=== PATIENT | female | born 1950 | race Caucasian/White ===

== ENCOUNTER → 2022-06-30 | Outpatient (CLI) | payer OTHER, MEDICARE ==
--- NOTE | 2022-06-30 12:44 | CT ---
EXAMINATION TYPE: CT chest wo con DATE OF EXAM: 06/30/2022 COMPARISON: CT April 14, [address] September 09, 2014 HISTORY: difficulty breathing x [address] DLP: 416 mGycm. Automated Exposure Control for Dose Reduction was Utilized. TECHNIQUE: CT scan of the thorax is performed without IV contrast. FINDINGS: LUNGS: Moderate emphysematous change with moderate biapical pleural/parenchymal scarring is redemonst rated. Persistent mild to moderate bibasilar linear scarring and/or atelectasis. Stable 7 mm peripher al right lower lobe nodule axial image 34. New 3 mm peripheral right lower lobe nodule axial image 36 . No pleural effusion or pneumothorax seen bilaterally. MEDIASTINUM: Lack of IV contrast is noted to limit evaluation for mediastinal and especially hilar a denopathy. There are no definitive greater than 1 cm mediastinal lymph nodes. Cardiomegaly is redemon strated. No pericardial effusion is seen. Moderate three-vessel coronary calcification is noted. Smal l sized hiatal hernia. OTHER: Cholecystectomy clips are seen. There is S-shaped scoliosis. Surgical clips in the right breas t axial image 20 are again seen. IMPRESSION: Cardiomegaly and moderate underlying emphysematous change with [id number] scattered parenchymal fibrosis. No acute pulmonary process. Stable 7 mm peripheral right lower lobe nodule. No significant change from recent prior CT.
== END | disposition home or self-care (01) ==
LOC: RADCTMAIN 11:10
PROVIDERS: ATTEND Family Medicine
DX: J43.9 Emphysema, unspecified (principal); J84.10 Pulmonary fibrosis, unspecified; I51.7 Cardiomegaly; R91.1 Solitary pulmonary nodule
CPT/HCPCS: 71250

== ENCOUNTER → 2023-06-08 | Outpatient (CLI) | payer MEDICARE ==
--- NOTE | 2023-06-08 13:43 | US ---
EXAMINATION TYPE: US transvaginal DATE OF EXAM: 06/08/2023 COMPARISON: CT 04/14/22 CLINICAL INDICATION: Female, 72 years old with history of N95.0 POSTMENOPAUSAL BLEEDING; TECHNIQUE: Transvaginal (TV). Date of LMP: unknown EXAM MEASUREMENTS: Uterus: 6.1 x 4.2 x 4.7 cm Endometrial Stripe: 0.18 cm 1. Uterus: Heterogeneous fundal appearance; hyperechoic area seen near uterine fundus measuring 0.7 x 0.9 x 0.7 2. Endometrium: appears wnl 3. Right Ovary: Obscured by overlying bowel gas 4. Left Ovary: Obscured by overlying bowel gas 5. Bilateral Adnexa: wnl 6. Posterior cul-de-sac: wnl IMPRESSION: 1. Endometrium is within normal limits for thickness. 2. Hyperechoic lesion in the uterine fundus possibly representing a fibroid.. No finding on prior CT 323 to correlate.
== END | disposition home or self-care (01) ==
LOC: RADUSWWP 12:20
PROVIDERS: ATTEND Family Medicine
DX: N85.8 Other specified noninflammatory disorders of uterus (principal); N95.0 Postmenopausal bleeding
CPT/HCPCS: 76830

== ENCOUNTER → 2024-01-11 | Outpatient (CLI) | payer MEDICARE ==
[2024-01-11 15:15] LABS: Basophils # (A) 0.02 X 10*3/uL (0.00-0.10); Basophils % (A) 0.4 %; Eosinophils # (A) 0.05 X 10*3/uL (0.04-0.35); HCT 41.4 % (37.2-46.3); HGB 13.7 g/dL (12.0-15.0); Lymphocytes # (A) 1.07 X 10*3/uL (0.90-5.00); Lymphocytes % (A) 21.6 %; MCH 29.5 pg (27.0-32.0); MCHC 33.1 g/dL (32.0-37.0); MCV 89.2 FL (80.0-97.0); Mean Platelet Volume 11.2 FL (9.5-12.2); Monocytes # (A) 0.42 X 10*3/uL (0.20-1.00); Monocytes % (A) 8.5 %; NRBC Per 100 WBC 0 X 10*3/uL (0.00-0.01); Neutrophils # (A) 3.38 X 10*3/uL (1.80-7.70); Neutrophils % (A) 68.3 %; Platelet Count 156 X 10*3/uL (140-440); RBC 4.64 X 10*6/uL (4.10-5.20); RDW 13.3 % (11.5-14.5); WBC 4.95 X 10*3/uL (4.50-10.00)
[2024-01-11 15:57] LABS: ALT 19 U/L (8-44); AST 19 U/L (13-35); Albumin 4.6 g/dL (3.8-4.9); Albumin/Globulin Ratio 1.84 Ratio (1.60-3.17); Alkaline Phosphatase 98 U/L (41-126); BUN/Creat Ratio 28.83 Ratio (12.00-20.00); Blood Urea Nitrogen 17.3 mg/dL (9.0-27.0); Calcium 9.6 mg/dL (8.7-10.3); Chloride 105 mmol/L (96-109); Chol/HDL Ratio 3.46 Ratio; Globulin 2.5 g/dL (1.6-3.3); Glucose 106 mg/dL (70-110); Iron 96 UG/DL (50-170); LDL Cholesterol,Calculated 111.7 mg/dL (0.0-131.0); Potassium 4.4 mmol/L (3.5-5.5); Sodium 141 mmol/L (135-145); T4, Free (Free Thyroxine) 0.97 ng/dL (0.80-1.80); Total Bilirubin 0.6 mg/dL (0.3-1.2); Total Iron Binding Capacity 400 UG/DL (228-460); Total Protein 7.1 g/dL (6.2-8.2)
--- NOTE | 2024-01-12 18:51 | MM ---
Reason for Exam: Screening (asymptomatic). Last mammogram was performed 1 year(s) and 10 month(s) ago. Patient History: Menarche at age 14. First Full-Term at age 24. Postmenopausal. MG pre op needle loc RT on the Right side. Risk Values: Patience 5 year model risk: 1.9%. NCI Lifetime model risk: 4.8%. Prior Study Comparison: 04/23/2020 Left MG 3D work up w/cad LT - 2, [facility]. 11/04/2020 Left MG diagnostic mammo LT w CAD - 2, [facility]. 03/17/2022 Bilateral MG 3D screening mammo w/cad, LOCATED WITHIN [facility]. Tissue Density: There are scattered areas of fibroglandular density. Findings: Analyzed By CAD. Redemonstrated postexcisional changes right breast. There is no suspicious group of microcalcifications or new suspicious mass in either breast. Overall Assessment: Benign, BI-RAD 2 Management: Screening Mammogram of both breasts in 1 year. Patient should continue monthly self-breast exams. A clinical breast exam by your physician is recommended on an annual basis. This exam should not preclude additional follow-up of suspicious palpable abnormalities. Note on Patience scores and lifetime risk: 1. A Patience score greater than 3% is considered moderate risk. If this is the case, consider specialist referral to assess eligibility for a risk reducing agent. 2. If overall lifetime risk for the development of breast cancer is 20% or higher, the patient may qualify for future screening with alternating mammogram and breast MRI. [facility], , 01/12/2024 6:48 PM. Electronically signed and approved by: Rebecca Hernandez M.D. Radiologist
== END | disposition home or self-care (01) ==
LOC: RADMAMWWP 10:21
PROVIDERS: ATTEND Family Medicine
DX: Z12.31 Encounter for screening mammogram for malignant neoplasm of breast (principal); E78.5 Hyperlipidemia, unspecified; N95.0 Postmenopausal bleeding; R53.83 Other fatigue; Z78.0 Asymptomatic menopausal state; R92.323 Mammographic fibroglandular density, bilateral breasts
CPT/HCPCS: 77063; 77067; 80053; 80061; 82607; 82746; 83036; 83540; 83550; 84439; 84443; 85025

== ENCOUNTER → 2024-02-21 | Outpatient (CLI) | payer MEDICARE ==
--- NOTE | 2024-02-21 15:10 | US ---
EXAMINATION TYPE: US transvaginal DATE OF EXAM: 02/21/2024 COMPARISON: 06/08/2023 CLINICAL INDICATION: Female, 73 years old with history of D25.9 LEIOMYOMA OF UTERUS, UNSPECIFIED; Pat ient denies any changes from prior exam TECHNIQUE: Transvaginal (TV). Doppler imaging: Not performed. FINDINGS: Date of LMP: Unknown EXAM MEASUREMENTS: Uterus: 5.2 x 3.1 x 3.9 cm Endometrial Stripe: 0.3 cm Right Ovary: 1.7 x 1.3 x 1.3 cm Left Ovary: 1.5 x 0.9 x 1.1 cm 1. Uterus: Retroverted ? Area previously measured not demonstrated / does not correlate to area puma ured on this exam; Heterogenous echogenic area anterior left uterus = 2.1 x 1.7 x 2.1 cm 2. Endometrium: Heterogenous 3. Right Ovary: wnl 4. Left Ovary: Multiple microcalcifications 5. Bilateral Adnexa: wnl 6. Posterior cul-de-sac: Trace fluid seen IMPRESSION: Fibroid tumor on prior exam is not visualized on today's exam not area within the left uterus suggest aldo of fibroid. These can be completely there is a MRI pelvis with contrast if there is clinical conc herlinda for mass. [facility], , 02/21/2024 3:08 PM
== END | disposition home or self-care (01) ==
LOC: RADUSWWP 14:10
PROVIDERS: ATTEND Family Medicine
DX: D25.9 Leiomyoma of uterus, unspecified (principal)
CPT/HCPCS: 76830

== ENCOUNTER 2024-03-28 06:56 | Day surgery (SDC) | payer MEDICARE ==
[2024-03-26 08:58] VITALS: BMI 37.2
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
[2024-03-28] MEDS ORDERED: fentaNYL (PF) 50 MCG/ML 2 ML AMP IV PRN (07:02)
[2024-03-28] MEDS: LACTATED RINGERS 1,000 ML IV ONE (07:39)
[2024-03-28] MEDS: LACTATED RINGERS 1,000 ML IV SCH (08:21)
[2024-03-28] MEDS: DEXAMETHASONE SOD PHOSPHATE 4 MG/ML 1 ML VIAL IV ONE (08:21)
[2024-03-28] MEDS: ONDANSETRON 4 MG/2 ML VIAL IVP ONE (08:22)
[2024-03-28] MEDS ORDERED: MIDAZOLAM 2 MG/2 ML VIAL ONE (08:27)
[2024-03-28] MEDS ORDERED: PHENYLEPHRINE 10 MG/ML VIAL ONE (08:27)
[2024-03-28] MEDS ORDERED: LIDOCAINE 1% INJ 10MG/ML (20 ML MDV) ONE (08:27)
[2024-03-28] MEDS ORDERED: PROPOFOL 10 MG/ML 20 ML VIAL IV ONE (08:27)
[2024-03-28] MEDS ORDERED: fentaNYL (PF) 50 MCG/ML 2 ML AMP ONE (08:27)
[2024-03-28] MEDS: GENTAMICIN 100 MG in SODIUM CHLORIDE 0.9% 100 ML IVPB PRN (08:29)
[2024-03-28 08:34] LABS: Basophils % (A) 0 %; Eosinophils # (A) 0.1 k/uL (0-0.7); Eosinophils % (A) 1 %; HCT 39.3 % (34.0-46.0); HGB 12.9 gm/dL (11.4-16.0); Lymphocytes # (A) 1.3 k/uL (1.0-4.8); Lymphocytes % (A) 25 %; MCH 28.8 pg (25.0-35.0); MCHC 32.9 g/dL (31.0-37.0); MCV 87.5 fL (80.0-100.0); Monocytes # (A) 0.3 k/uL (0-1.0); Monocytes % (A) 7 %; Neutrophils # (A) 3.5 k/uL (1.3-7.7); Neutrophils % (A) 66 %; Platelet Count 148 k/uL (150-450); RBC 4.49 m/uL (3.80-5.40); RDW 13.3 % (11.5-15.5); WBC 5.2 k/uL (3.8-10.6)
[2024-03-28] MEDS: AMPICILLIN 1,000 MG in SODIUM CHLORIDE 0.9% 50 ML IVPB PRN (08:45)
[2024-03-28 08:49] LABS: African American GFR (CKD) >90 (>60 ml/min/1.73 sqM); Anion Gap 8 mmol/L; Blood Urea Nitrogen 16 mg/dL (7-17); Calcium 9.2 mg/dL (8.4-10.2); Carbon Dioxide 25 mmol/L (22-30); Chloride 105 mmol/L (98-107); Glucose 108 mg/dL (74-99); Non-African American GFR(CKD) >90 (>60 ml/min/1.73 sqM); Potassium 4.2 mmol/L (3.5-5.1); Sodium 138 mmol/L (137-145)
[2024-03-28] MEDS: IV FLUID CONTINUATION 1,000 ML IV ONE (09:34)
--- NOTE | 2024-03-28 09:39 | P.OP ---
Date of Procedure: 03/28/24 Preoperative Diagnosis: Transobturator tape mesh erosion Postoperative Diagnosis: Same Procedure(s) Performed: Excision of transobturator tape mesh erosion, cystoscopy Anesthesia: ANGELES Surgeon: Shaq Bauer Estimated Blood Loss (ml): 25 Pathology: other (Eroded mesh) Condition: stable Disposition: PACU Indications for Procedure: The patient is 73. Many years ago I did a transobturator tape. It failed. She was referred to [place] had a second mesh placed. Currently she has had vaginal irritation and discharge. On examination there is obvious mesh erosion. She comes for excision of mesh Description of Procedure: Patient brought to the operating suite. Given a general anesthetic. Placed in lithotomy position with a sterile prep and drape. The labia are sewn laterally with 2-0 silk. Woodard catheter is introduced sterilely. A vaginal speculum is introduced into the vagina. Initial inspection identifies monofilament blue stitch. A hemostat is placed on it. I dissected along the stitch on the left side of the urethra until I find the corner of the mesh. I then slowly dissect the mesh off the urethra making sure not to injure the urethra. I then do cystoscopy to make sure there is no evidence of urethral injury and there is non e. Bladder is unremarkable. Woodard catheter was reintroduced. Continue to follow-up with mesh to the right of the urethra but then it becomes extremely scarred. Elected to stop here and cut the mesh that point in time. Irrigate thoroughly and then I closed the bladder with a thick layer of 2-0 chromic. I then placed on iodoform gauze in the vagina. Urine remains clear. The patient is awakened and returned to recovery in good condition. Blood loss is 25 mL. She will be discharged home upon recovery and follow in the office tomorrow for gauze removal
[2024-03-28 09:42] VITALS: TEMP 97
[2024-03-28 10:37] VITALS: RESP 16
[2024-03-28 11:12] VITALS: BP 142/72; PULSE 65
== END 2024-03-28 11:11 | disposition home or self-care (01) ==
LOC: OR 06:56
PROVIDERS: ATTEND Urology
DX: T83.711A Erosion of implanted vaginal mesh to surrounding organ or tissue, initial encounter (principal); E78.5 Hyperlipidemia, unspecified; K21.9 Gastro-esophageal reflux disease without esophagitis; G47.33 Obstructive sleep apnea (adult) (pediatric); Z99.89 Dependence on other enabling machines and devices; F41.9 Anxiety disorder, unspecified; F32.A Depression, unspecified; Z79.899 Other long term (current) drug therapy; Z87.891 Personal history of nicotine dependence; Z88.8 Allergy status to other drugs, medicaments and biological substances; Z88.5 Allergy status to narcotic agent; Z86.718 Personal history of other venous thrombosis and embolism; Y83.8 Other surgical procedures as the cause of abnormal reaction of the patient, or of later complication, without mention of misadventure at the time of the procedure
CPT/HCPCS: 57295; 80048; 85025; J2250; J1100; J2405; J2003; J3010; J1580; J0290; J2704; J2371